=== PATIENT | female | born 1985 | race Caucasian/White ===

== ENCOUNTER 2019-06-18 14:57 | Emergency (ER) | payer SELFPAY ==
[2019-06-18 15:10] VITALS: BP 123/82
--- NOTE | 2019-06-18 15:11 | UC ---
Dental HPI - HPI Summary HPI Summary: 33 y/o female presents to the urgent care c/o RT side upper tooth pain w/ mild swelling since last week. Pt reports she is 10 weeks and she called a Dentist about 2 days ago and was told she needs to be seen first by her OBGYN until they can do any dental procedures. She has her care visit on . She has 2 bad fracture tooth on her RT side upper jaw, but also feels her wisdom tooth is bothering her when she is chewing. Pain now is 3/10 radiating to her Rt ear and Rt side of neck and also associated w/ a GRAVES. She has been taking Tylenol PO to alleviate symptoms. Pt denies fever, trismus, difficulty breathing, sore throat, SOB, chest pain, dizziness, abdominal pain, pelvic pain, N/V/D. LMP:04/08/2019. - History of Current Complaint Chief Complaint: UCDentalProblem Stated Complaint: TOOTH ACHE, AND HEADACHE Time Seen by Provider: 06/18/19 15:09 Hx Obtained From: Patient Hx Last Menstrual Period: 04/08/2019 ?: Yes - 10 weeks Onset/Duration: Gradual Onset, Lasting Weeks - 1 week, Still Present, Worse Since - yesterday Severity: Mild Pain Intensity: 3 Pain Scale Used: 0-10 Numeric Aggravating Factor(s): Chewing Alleviating Factor(s): OTC Meds - Tylenol PO Related History: Other - 2 fracture molar on RT upper jaw - Allergies/Home Medications Allergies/Adverse Reactions: Allergies Allergy/AdvReac Type Severity Reaction Status Date / Time No Known Allergies Allergy Verified 06/18/19 15:10 Home Medications: Home Medications Acetaminophen [Tylenol Extra Strength] 500 mg PO DAILY WITH MEAL 06/18/19 [ History Confirmed 06/18/19] Fdy214/Iron Fum/Folic/Docusate [ 19 Tablet] 1 tab PO DAILY WITH MEAL [History Confirmed 06/18/19] PMH/Surg Hx/FS Hx/Imm Hx Previously Healthy: Yes - Pt denies PMHX - Surgical History Surgical History: Yes Surgery Procedure, Year, and Place: PYLENIDOL CYST REMOVED, CHOLECYSTECTOMY - Family History Known Family History: Positive: Cardiac Disease, Hypertension, Diabetes - Social History Occupation: Employed Full-time Lives: With Family Alcohol Use: None Substance Use Type: None Smoking Status (MU): Heavy Every Day Tobacco Smoker Type: Cigarettes Amount Used/How Often: 1/2 PPD Review of Systems All Other Systems Reviewed And Are Negative: Yes Constitutional: Positive: Negative Skin: Positive: Negative Eyes: Positive: Negative ENT: Positive: Dental Pain - RT side upper jaw pain w/ 2 fracture and gross decay molars, Ear Ache - RT ear pain Respiratory: Positive: Negative Cardiovascular: Positive: Negative Gastrointestinal: Positive: Negative Genitourinary: Positive: Negative Motor: Positive: Negative Neurovascular: Positive: Negative Musculoskeletal: Positive: Negative Neurological: Positive: Headache Psychological: Positive: Negative Is Patient Immunocompromised?: No Physical Exam - Summary Physical Exam Summary: Vital Signs Reviewed: Yes General: Well-Appearing, Well-Nourished female sitting in the examining table w/o any respiratory or pain distress Eyes: Positive: Conjunctiva Clear - PERRLA, EOMI, ENT: Positive: Normal ENT inspection, Hearing grossly normal, Pharynx normal, TMs normal - B/L external ear canals clear,. Negative: Tonsillar swelling, Tonsillar exudate, Trismus Dental: Positive: Gross Decay/Caries on molars #1,4 and 5 w/ gingival swelling and mild erythema over molar #1, tender to percussion. involves tissue surrounding theses molars, w/ positive anterior Cervical Lymphadenopathy. Neck: Positive: Supple Respiratory: Positive: Chest non-tender, Lungs clear, Normal breath sounds, No respiratory distress Cardiovascular: Positive: RRR, No Murmur, Pulses Normal, Brisk Capillary Refill Abdomen Description: Positive: Nontender, No Organomegaly, Soft. Negative: CVA Tenderness (R), CVA Tenderness (L) Bowel Sounds: Positive: Present Musculoskeletal: Positive: Strength Intact, ROM Intact, No Edema Neurological Exam: Normal Psychological Exam: Normal Skin Exam: Normal Triage Information Reviewed: Yes Vital Signs: Initial Vital Signs Temp 97.9 F 06/18/19 15:07 Pulse 82 06/18/19 15:07 Resp 18 06/18/19 15:07 BP 123/82 06/18/19 15:07 Pulse Ox 99 06/18/19 15:07 Dental Complaint Course/Dx - Course Course Of Treatment: 33 y/o female presents to the urgent care c/o RT side upper tooth pain w/ mild swelling since last week. Pt reports she is 10 weeks and she called a Dentist about 2 days ago and was told she needs to be seen first by her OBGYN until they can do any dental procedures. She has her care visit on . She has 2 bad fracture tooth on her RT side upper jaw, but also feels her wisdom tooth is bothering her when she is chewing. Pain now is 3/10 radiating to her Rt ear and Rt side of neck and also associated w/ a GRAVES. She has been taking Tylenol PO to alleviate symptoms. Pt denies fever, trismus, difficulty breathing, sore throat, SOB, chest pain, dizziness, abdominal pain, pelvic pain, N/V/D. LMP:04/08/2019. Hx obtained. Pt w/Gross Decay/Caries on molars #1,4 and 5 w/ gingival swelling and mild erythema over molar #1, tender to percussion. erythema surrounding this molar, w/ positive anterior Cervical Lymphadenopathy on examination. Pt with dental abscess on examination. Pt is 10 weeks . Pt advised to continue w/ Tylenol and to apply heat and orajel to alleviate symptoms. Pt Rx Amoxicillin PO and given a Dental list to f/u w/ Dentist as soon as possible for further evaluation and treatment. Also advised if not improvement of symptoms to f/u w/ her OBGYN sooner than .Pt understood and agreed with plan of care. Left the clinic ambulating. - Differential Dx/Diagnosis Differential Diagnosis/Dx: Dental Abscess, Fractured Tooth, Odontogenic Pain, Peridontic Disease, Peritonsillar Abcess, Pharyngitis Provider Diagnosis: Dental abscess, Dental cavities Discharge ED - Sign-Out/Discharge Documenting (check all that apply): Patient Departure - D/C home All imaging exams completed and their final reports reviewed: No Studies - Discharge Plan Condition: Stable Disposition: HOME Prescriptions: Amoxicillin PO (*) [Amoxicillin 500 MG CAP*] 500 mg PO TID #21 cap Patient Education Materials: Dental Abscess (ED) Referrals: No Primary Care Phys,NOPCP [Primary Care Provider] - 3 Days Pili Owen MD [Medical Doctor] - 3 Days Additional Instructions: 1-Please take full course of antibiotics to avoid resistance. Take yogurts w/ probiotics to protect your GI system 2- Continue taking Tylenol PO 500mg q6hrs to alleviate pain and swelling. 3- F/u with your Dentist or Dental List provided as soon as possible for further treatment. 4- If symptoms do not improve or worsen please f/u with your OBGYN on 2018 on your appt or sooner for further evaluation and treatment - Billing Disposition and Condition Condition: STABLE Disposition: Home
== END 2019-06-18 15:49 | disposition home or self-care (01) ==
LOC: UCEAST 14:57
DX: O99.89 Other specified diseases and conditions complicating pregnancy, childbirth and the puerperium (principal); K04.7 Periapical abscess without sinus; K02.9 Dental caries, unspecified; O99.331 Smoking (tobacco) complicating pregnancy, first trimester; Z3A.10 10 weeks gestation of pregnancy
CPT/HCPCS: 99212; G0463